=== PATIENT | female | born 1960 | race Caucasian/White ===

== ENCOUNTER 2024-05-14 22:34 | Emergency (ER) | payer MEDICARE, SELFPAY ==
[2024-05-14 22:37] VITALS: BP 157/85
--- NOTE | 2024-05-14 23:22 | ED.GENMED ---
History of Present Illness
General
Chief Complaint: Fall
Source: patient
Exam Limitations: none
Time Seen by Provider: 05/14/24 23:14
Nursing documentation reviewed up to this point in time: agreed with
History of Present Illness
History of Present Illness:
64-year-old female with past medical history of hypertension, hyperlipidemia, anxiety, depression who presents emergency department today with concerns of right knee pain following a fall. Patient states that today, she was walking up the steps to
her friend's house when she tripped and fell, bruising her knee. Patient states that since then, she has been able to walk but she has pain with weightbearing. Patient denies any numbness or tingling her lower extremity. She denies hitting her
head or injuring her neck. She does not take blood thinner. She not was consciousness. She denies any pain in her upper extremities.
Review of Systems
Review of Systems
All Other Systems: ROS reviewed and negative except as documented in HPI and ROS
Phy Exam
Physical Exam
Physical Exam:
General: Patient is well appearing and in no acute distress; non-toxic
Skin: Warm and dry, no rashes or lesions
Head: Normocephalic, atraumatic
Eyes: Sclera non-icteric. EOMs intact.
Cardiac: Regular rate
Peripheral Vascular: 2+ dorsalis pedis pulses bilaterally
Pulm: Normal respiratory effort
Musculoskeletal: Right knee suprapatellar swelling noted with overlying ecchymosis. Negative anterior drawer testing. Negative Carolina's. No laxity with varus valgus stress. Full range of motion of bilateral lower extremities. No pain with
passive range of motion of the ankle no palpable bony deformities. No pain with right hip adduction and abduction.
Neuro: CN II-XII intact, no focal neurologic deficits. Sensation intact
Psychiatric: Appropriate mood and affect.
Course
Orders/Labs/Results
Orders:
Orders
05/14/24 22:37
Knee, Right 4 or More Views [CR Knee- Right 4 Or More View*] Urgent
Comment:
Reason For Exam: fell injury with swelling hx TKR
05/14/24 23:35
Knee Immobilizer Right-Treatme ONCE
Ibuprofen [Motrin] 400 mg PO NOW STA
Vital Signs
Initial and Last Documented VS:
Initial Vital Signs
Temp Pulse Resp BP Pulse Ox
98.3 F 77 15 157/85 97
05/14/24 22:37 05/14/24 22:37 05/14/24 22:37 05/14/24 22:37 05/14/24 22:37
Last Documented Vital Signs
Temp Pulse Resp BP Pulse Ox
98.3 F 77 15 157/85 97
05/14/24 22:37 05/14/24 22:37 05/14/24 22:37 05/14/24 22:37 05/14/24 22:37
MDM/Problems Addressed
Differential Diagnosis Includes:
Hematoma, knee contusion, tibial plateau fracture
MDM/Problems Addressed:
64-year-old female presents emergency department today with concerns of right knee pain and swelling following a fall. She is not taking blood thinners. She not hit her head. Did not lose consciousness. She not have any other injuries. X-ray is
negative for acute fracture. She is neurovascularly intact. Suspect contusion. On exam her knee joints intact no concern for high-grade ligamentous injury. Patient placed in knee immobilizer, discussed close follow-up, patient stable for
discharge.
*Critical Care Note
Total Time (30-74mins, 75-104mins- exclusive of procedures): Not Applicable
ED Attending Note
-
Portions of this chart may have been created with voice recognition software.� Occasional wrong word or��sound alike� substitutions may have occurred due to the inherent limitations of voice recognition software.
Discharge Plan
Departure
Patient Disposition: Home (Routine Discharge)
Date of Disposition: 05/15/24
Time of Disposition: 00:02
Patient with high blood pressure during this ER visit?: Yes
Condition: Good
Discharge Problem:
Contusion of knee
Instructions: Knee Immobilizer (DC), Contusion (DC), BLOOD PRESSURE
Referrals:
David Bruce MD [Active] - Call in 1-3 days for appt
Activity Restrictions/Additional Instructions:
Your x-ray did not show any evidence of knee fracture or dislocation.
Please use your knee immobilizer when ambulating for the next week.
You can take Tylenol and Motrin as needed for your symptoms.
Please follow-up with your primary care provider in 1 to 2 weeks should your symptoms fail to improve. You may need MRI for further evaluation of your symptoms.
PLEASE RETURN EMERGENCY DEPARTMENT SHOULD YOU DEVELOP NUMBNESS AND TINGLING IN HER RIGHT LOWER EXTREMITY, PALLOR, LOSS OF SENSATION, INABILITY AMBULATE, ACUTE WORSENING OF YOUR PAIN, CHEST PAIN, SHORTNESS OF BREATH, WEAKNESS ONE-SIDED BODY VERSUS
OTHER, or any other signs or symptoms worrisome to you
Interventions
Interventions:
*Risk Screen - Suicide Last Done: 05/14/24 22:37
*General Assessment Last Done: 05/14/24 22:37
*Neglect/Abuse Screening Last Done: 05/15/24 00:12
*ED COVID-19 Vaccine History Last Done: 05/14/24 22:37
*Nursing Disposition Last Done: 05/15/24 00:12
ED-Musculoskeletal Assessment Last Done: 05/14/24 23:33
ED- Neurological Assessment Last Done: 05/14/24 23:33
ED-Skin Assessment Last Done: 05/14/24 23:33
Discharge Date and Time
Discharge Date/Time: 05/15/24 00:14
Print Language: MAORI
[2024-05-14] MEDS: MOTRIN 400 MG PO (23:40)
== END 2024-05-15 00:14 | disposition home or self-care (01) ==
LOC: EMR 22:34
PROVIDERS: EMERGENCY PHYSICIAN Student in an Organized Health Care Education/Training Program; FAMILY PHYSICIAN Student in an Organized Health Care Education/Training Program
DX: S80.01XA Contusion of right knee, initial encounter (principal); W10.9XXA Fall (on) (from) unspecified stairs and steps, initial encounter; I10 Essential (primary) hypertension; E78.5 Hyperlipidemia, unspecified; F41.9 Anxiety disorder, unspecified; F32.A Depression, unspecified
CPT/HCPCS: 99283; 73564